=== PATIENT | male | born 2000 | race Caucasian/White ===

== ENCOUNTER 2024-09-23 07:29 | Emergency (ER) | payer BC, SELFPAY ==
[2024-09-23 07:36] VITALS: BP 167/83; PULSE 114; RESP 18; TEMP 36.8; O2SAT 95
[2024-09-23 07:37] VITALS: BMI 24.3
--- NOTE | 2024-09-23 07:45 | XR_ITS ---
Examination: Abdomen AP single view Technique: AP portable supine abdomen, single view Exam date and time: September 23, 2024 0755 hours INDICATIONS: Abdominal pain constipation beginning 5 days ago FINDINGS: Mild air and stool throughout the colon No obstruction No free air IMPRESSION: Mild air and stool throughout the colon
[2024-09-23] MEDS: MAGNESIUM CITRATE 300 ML BTL PO (08:16)
--- NOTE | 2024-09-23 09:07 | EDNOTE_ITS ---
<Statement entered by Za Sharp MD - 09/26/24 09:18> As co-signing physician, I was present and available for consult prn. I concur with the plan and care as documented by the midlevel provider. ED Ped. GI Abdomen RME/HPI General Chief Complaint: Abdominal Pain Stated Complaint: CONSTIPATED X 4-5 DAYS; USED SUPPOSITORY Time Seen by Provider: 09/23/24 07:34 Arrival date/time: 09/23/24 07:29 23-year-old male presents emergency department with complaints of constipation ongoing for 4 to 5 days there are no other associated symptoms or aggravating factors no other modifying factors, patient denies taking medication before coming to ER today Limitations: no limitations Related Data Previous Rx's ?Medication ?Instructions ?Recorded polyethylene glycol 3350 17 17 g PO QDAY 3 days #119 grams 09/23/24 gram/dose oral powder (Miralax) Allergies Allergy/AdvReac Type Severity Reaction Status Date / Time No Known Allergies Allergy Verified 09/23/24 07:31 Pediatric Review of Systems Systems Reviewed Systems Reviewed: All systems reviewed, normal except as documented Review of Systems Constitutional: Reports as per HPI; Denies fever Eyes: Reports as per HPI ENT: Reports as per HPI Cardiovascular: Reports as per HPI Respiratory: Reports as per HPI; Denies cough, dyspnea or wheezing Gastrointestinal: Reports as per HPI, abdominal pain and constipation; Denies nausea, vomiting or diarrhea Past Medical History Past Medical History NEUROLOGIC: Negative Neurological Disorders CARDIAC: Negative Cardiac Disorders or Congestive Heart Failure RESPIRATORY: Negative Chronic Obstructive Pulmonary Disease (COPD) GENITOURINARY: Negative Renal Disease ENDOCRINE: Negative Diabetes Mellitus Type 1 or Diabetes Mellitus Type 2 Social History SMOKING STATUS: Never smoker Ped Exam General Limitations: no limitations General appearance: well-appearing, well-hydrated and well-nourished Head Head exam: normocephalic, atruamatic and normal inspection Eye Eye exam: Present normal appearance, PERRL and EOMI ENT ENT exam: normal exam, normal oropharynx and mucous membranes moist Neck Neck exam: Present normal inspection, full ROM and trachea midline Chest Chest inspection: Present normal inspection and symmetric chest wall rise Respiratory Respiratory exam: Present normal lung sounds bilaterally Cardiovascular Cardiovascular exam: Present regular rate, normal rhythm and normal heart sounds Abdominal Exam Abdominal exam: Present soft and normal bowel sounds; Absent distention, tenderness, guarding, rebound, rigidity, [place]'s sign or tenderness at McBurney's Point Abdominal tenderness: Absent RUQ or RLQ Extremities Exam Extremities exam: Present normal inspection, full ROM and normal capillary refill Back Exam Back exam: Present normal inspection and full ROM Neurological Exam Neurological exam: Present alert, oriented X3 and CN II-XII intact Skin Skin exam: Present warm, dry, intact and normal color Course Quality Measures none Orders Category Date Time Status XR abdomen 1V Stat Exams 09/23/24 07:45 Completed Magnesium Citrate Liqd [Citrate of Magnesia Liqd] Med 09/23/24 07:45 Discontinued 300 ml PO X1 ONE Vital Signs Vital signs: Vital Signs Temperature 98.2 F 09/23/24 07:36 Pulse Rate 114 H 09/23/24 07:36 Respiratory Rate 18 09/23/24 07:36 Blood Pressure 167/83 H 09/23/24 07:36 Pulse Oximetry (%) 95 09/23/24 07:36 Oxygen Delivery Method Room Air 09/23/24 07:36 O2 saturation 95% room air within normal limit Medical Decision Making [facility] Narrative MDM Narrative: 23-year-old male presents emergency department with complaints of constipation ongoing for 4 to 5 days there are no other associated symptoms or aggravating factors no other modifying factors, patient denies taking medication before coming to ER today Patient reports that he was reading on the Internet about constipation and he is nervous patient requesting imaging Patient has soft nontender abdomen no distention reports no vomiting Patient medicated here and discharged home with meds X-ray of the abdomen does not show acute of bowel obstruction Patient discharged home in no distress to follow-up with primary care doctor in the next 24 to 48 hours and for any worsening symptoms to return to the ER immediately Differential Diagnosis Differential Diagnosis: Abdominal pain, constipation, obstipation Medical Records Medical records reviewed: Yes I reviewed the patient's medical records. Radiology Data Radiology results reviewed: Yes I reviewed the patient's radiology results. MDM (ped GI) Patient data External records reviewed:: [facility] previous records Clinical information provided by:: patient Social determinants that could affect healthcare access:: none Patient has the following chronic illnesses:: None How is presenting disease/condition affected by chronic disease/condition?: no chronic disease Evaluation data The following diagnostics were reviewed and interpreted by me:: lab results and radiology exam(s) Lab and/or radiology exams considered but not ordered:: Labs radiology obtained Interpretation Summary: Reviewed by me Medications Medications considered but not ordered:: Given Medication administrations:: Medication Administration History Discontinued Medications Magnesium Citrate (Magnesium Citrate 300 Ml Btl) 300 ml PO X1 ONE Stop: 09/23/24 07:46 Last Admin: 09/23/24 08:16 Dose: 300 ml Documented By: RD Given Consultations Consultation(s) initiated? (list below): No Diagnosis Most likely diagnosis given after review of the tests above:: Constipation Admission Indicated Admission indicated?: not indicated Explain why admission is indicated or not indicated:: Constipation no criteria for admission Admission Request Was there a request for admission?: No Disposition Plan Disposition Plan: Discharge Discharge Attestation Discharge Attestation: The patient and all family members were given an opportunity to ask questions and understood the discharge instructions. Discharge instructions specifically effects, indications for sooner follow up or return to the emergency department, and the expected course of current diagnosis. Patient condition: Stable Discharge Plan Plan Patient Disposition: HOME (Self Care) Disposition Comment: Stable Prescriptions/Referrals Prescriptions/Med Rec: New polyethylene glycol 3350 [Miralax] 17 gram/dose powder 17 g PO QDAY 3 Days Qty: 119 0RF Referrals: Elliott Vera MD [Primary Care Provider] - 09/24/24 Problem List Clinical Impression: Constipation Patient/Caregiver Discharge Instructions Education Materials: ED Constipation (Adult) Additional Instructions: Please follow up with your primary care doctor in the next 24-48hrs for any worsening symptoms return here immediately Print Language: Wolof Stand Alone Forms: Kimberly Award Info., Work/School Release, Patient Portal Info Letter BEBETO/MERRILL Supervising Physician BEBETO/MERRILL Supervising Physician: dr sharp
== END 2024-09-23 09:18 | disposition home or self-care (01) ==
PROVIDERS: Emergency Provider Emergency Medicine; PCP Internal Medicine
DX: K59.00 Constipation, unspecified (principal)
CPT/HCPCS: 74018; 99283; A9270

== ENCOUNTER → 2024-10-27 | Outpatient (CLI) | payer BC, SELFPAY ==
[2024-10-27 12:15] LABS: Collection Type, Urine Clean Catch; Squamous Epithelial Cell,Urine 0 /hpf (0-5)
[2024-10-27 12:47] LABS: Glucose Estimated Average 97 mg/dL (80-131)
[2024-10-27 13:01] LABS: Bacteria,Urine Rare; Bilirubin,Urine Negative (Negative); Blood,Urine Negative (Negative); Clarity,Urine Clear (Clear/Hazy); Color,Urine Yellow (Lt Yel-Yel); Glucose, Urine Negative (Negative); Ketones,Urine 2+ (Negative); Leukocyte Esterase,Urine Negative (Negative); Nitrite,Urine Negative (Negative); PH,Urine 7.5 (5.0-7.0); Protein,Urine Trace (Neg - Trace); RBC,Urine 2 /hpf (0-3); Specific Gravity,Urine 1.025 (1.001-1.035); Urobilinogen,Urine Negative mg/dL (0.0-1.0); WBC,Urine 1 /hpf (0-5)
[2024-10-27 13:02] LABS: Alanine Aminotransferase 16 U/L (10-49); Albumin, Serum 5.3 gm/dL (3.5-5.0); Albumin/Globulin Ratio 2.1 (1.2-2.2); Alkaline Phosphatase 54 U/L (46-116); Anion Gap 12 (7-16); Aspartate Amino Transferase 17 U/L (0-34); BUN/Creatinine Ratio 11 Ratio (12-20); Blood Urea Nitrogen 10 mg/dL (9-23); Calcium 10.5 mg/dL (8.3-10.6); Calcium (Corrected) 10.5 mg/dL (8.5-10.1); Carbon Dioxide 26.4 mMol/L (20.0-31.0); Chloride 100 mMol/L (98-107); Cholesterol 176 mg/dL (132-200); Creatinine (Component) 0.9 mg/dL (0.6-1.3); Free T4 (Free Thyroxine) 1.31 ng/dL (0.89-1.76); Globulin 2.5 gm/dL (2.3-3.5); Glucose 96 mg/dL (74-106); HDL Cholesterol 58 mg/dL (40-60); LDL Cholesterol,Calculated 104 mg/dL (0-130); Osmolality,Calculated 274 (275-295); Potassium 4.2 mMol/L (3.4-5.1); Sodium 138 mMol/L (136-145); Thyroid Stimulating Hormone 1.55 uIU/mL (0.55-4.78); Total Protein 7.8 gm/dL (5.7-8.2); Triglycerides 69 mg/dL (30-150); eGFR > 60 See Note
[2024-10-27 13:08] LABS: Basophils % (Auto) 0 % (0-2.5); Eosinophils % (Auto) 0 % (0-10); Hematocrit 49.7 % (41.0-53.0); Hemoglobin 17.5 g/dL (13.5-16.0); Immature Granulocytes % (Auto) 0 % (0-0); Immature Granulocytes Auto 0.03 Thou/mm3 (0.00-0.00); Lymphocytes % (Auto) 21 % (10-50); Mean Corpuscular HGB Conc 35.2 g/dl (31.0-37.0); Mean Corpuscular Hemoglobin 28.9 pg (25.0-35.0); Mean Corpuscular Volume 82 fL (80-100); Monocytes # (Auto) 0.7 Thou/mm3 (0.0-0.8); Monocytes % (Auto) 7 % (0-12); Neutrophils # (Auto) 6.7 Thou/mm3 (1.8-7.7); Neutrophils % (Auto) 71 % (37-80); Nucleated Red Blood Cell % 0 /100 WBC (0); Platelet Count 320 Thou/mm3 (140-440); RDW Standard Deviation 35.4 fL (35.1-43.9); Red Blood Count 6.05 Miln/mm3 (4.50-5.90); White Blood Count 9.5 Thou/mm3 (3.8-10.6)
== END | disposition home or self-care (01) ==
LOC: COPL 11:55
PROVIDERS: PCP Internal Medicine; Referring Provider Internal Medicine; Visit Provider Internal Medicine
DX: Z00.00 Encounter for general adult medical examination without abnormal findings (principal)
CPT/HCPCS: 36415; 80053; 80061; 81001; 82306; 83036; 84439; 84443; 85025

== ENCOUNTER → 2024-11-13 | Outpatient (CLI) | payer BC, SELFPAY ==
--- NOTE | 2024-11-13 | XR_ITS ---
Examination: Retroperitoneal ultrasound, complete Technique: Multiple high resolution grayscale images of the retroperitoneum obtained, including kidneys and bladder. Exam date and time:November 13, 2024 1223 hours INDICATIONS: Abdominal pain and constipation beginning 5 days ago FINDINGS: Right kidney 11.7 x 5.5 x 5.2 cm cortex 1.3 cm Minimal right hydronephrosis Left kidney 12.4 x 7.0 x 6.1 cm cortex 2.5 cm Upper pole hyperechoic lesion 10 mm which may represent calculus Bladder prevoid volume 136 cc no voiding Prostate 13.1 C see no prostate nodules IMPRESSION: Suspicious for 10 mm upper pole left renal calculus
--- NOTE | 2024-11-13 11:30 | XR_ITS ---
Examination: Abdomen sonogram, complete Date and time of exam: November 23, 2024 at 1209 hours INDICATIONS: Constipation beginning 5 days ago TECHNIQUE: Real-time dickens scale sonographic images abdomen FINDINGS: Normal gallbladder Normal common bile duct 0.3 cm Pancreatic head 2.2 cm Aorta not enlarged Liver 14.3 cm no focal liver lesions Normal hepatopedal portal venous flow Patent IVC Right kidney 11.3 x 4.7 x 5.6 cm renal cortex 1.7 cm Left kidney 12.6 cm x 6.4 x 6.7 cm renal cortex 2.6 cm Hyperechoic upper pole left renal mass 14 x 12 x 11 mm Spleen 10.8 cm. 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
--- NOTE | 2024-11-13 12:43 | XR_ITS ---
Examination: PA lateral chest 2 views TECHNIQUE: Upright AP lateral chest 2 views Exam date and time: November 13, 2024 1253 hours INDICATIONS: Diagnosis hypertension. FINDINGS: Normal heart size Lungs are clear. The osseous structures are intact Old right clavicle fracture IMPRESSION: No active disease
== END | disposition home or self-care (01) ==
LOC: CDIM 11:54
PROVIDERS: PCP Internal Medicine; Referring Provider Internal Medicine; Visit Provider Internal Medicine
DX: N28.89 Other specified disorders of kidney and ureter (principal); N20.0 Calculus of kidney
CPT/HCPCS: 71046; 76700; 76770

== ENCOUNTER → 2024-12-10 | Outpatient (CLI) | payer BC, SELFPAY ==
--- NOTE | 2024-12-10 13:30 | XR_ITS ---
Examination: CT abdomen with intravenous contrast CT pelvis with intravenous contrast 2-D coronal reconstructions 2-D sagittal reconstructions Date and time of exam:December 10, 2024 1401 hours INDICATIONS: Diagnosis neoplasm left kidney, left kidney stones, 10 mm upper pole left renal calculus on renal sonogram November 13, 2024. CTDI: vol (mGy) 6.83 DLP: (mGycm) 389 Technique: Multiple axial sections of the abdomen and pelvis have been obtained. 64 slice high-resolution scanner used. 3 mm axial sections have been obtained, post intravenous injection 50 cc [id number] 2-D sagittal, coronal reconstructions obtained. Low dose protocols were performed. One or more of the following dose reduction techniques were used; automated exposure control, adjustment of the mA and/or KV according to patient size, use of iterative reconstruction technique. Findings: No focal liver or splenic lesions No gallstones No pancreatic or adrenal mass No renal or ureteral calculi, no hydronephrosis Aorta normal size No bowel obstruction Normal appendix No diverticulitis Normal seminal vesicles No prostatomegaly No bladder mass or bladder calculi IMPRESSION: No renal or ureteral calculi, no hydronephrosis Normal appendix No bladder mass or bladder calculi
== END | disposition home or self-care (01) ==
LOC: CCTX 13:14
PROVIDERS: PCP Internal Medicine; Referring Provider Internal Medicine; Visit Provider Internal Medicine
DX: D41.02 Neoplasm of uncertain behavior of left kidney (principal)
CPT/HCPCS: 74177; A4649; Q9967

== ENCOUNTER → 2025-04-09 | Outpatient (CLI) | payer BC, SELFPAY ==
--- NOTE | 2025-04-09 09:15 | XR_ITS ---
Examination: Renal sonography,. Renal Doppler sonographic evaluation of the kidneys Date and time: April 09, 2025 0904 hours Comparison November 13, 2024 INDICATIONS: Onset hypertension 6 months ago TECHNIQUE AND FINDINGS: Multiple sonographic images kidneys Sonographic evaluation of the kidneys including assessment peak arterial systolic flow is, resistive indices 6 separation times and renal aortic ratios Right kidney 11.8 cm Left kidney 12.1 cm No bilateral elevation of peak systolic velocities No significant elevation resistive indices Normal renal aortic ratios IMPRESSION: No Doppler sonographic findings of renal artery stenosis
== END | disposition home or self-care (01) ==
LOC: CDIM 08:48
PROVIDERS: PCP Internal Medicine; Referring Provider Internal Medicine Cardiovascular Disease; Visit Provider Internal Medicine Cardiovascular Disease
DX: I10 Essential (primary) hypertension (principal)
CPT/HCPCS: 93975

== ENCOUNTER → 2025-04-15 | Outpatient (CLI) | payer BC, SELFPAY ==
[2025-04-15 15:13] LABS: Misc Send Out* See Sep Rpt
[2025-04-15 15:26] LABS: Collection Type, Urine Clean Catch; Squamous Epithelial Cell,Urine 0 /hpf (0-5)
[2025-04-15 16:16] LABS: Bacteria,Urine Rare; Bilirubin,Urine Negative (Negative); Blood,Urine Negative (Negative); Clarity,Urine Clear (Clear/Hazy); Color,Urine Yellow (Lt Yel-Yel); Glucose, Urine Negative (Negative); Ketones,Urine 3+ (Negative); Leukocyte Esterase,Urine Negative (Negative); Nitrite,Urine Negative (Negative); PH,Urine 6.5 (5.0-7.0); Protein,Urine Trace (Neg - Trace); RBC,Urine 3 /hpf (0-3); Specific Gravity,Urine 1.030 (1.001-1.035); Urobilinogen,Urine Negative mg/dL (0.0-1.0); WBC,Urine 1 /hpf (0-5)
[2025-04-15 16:19] LABS: Alanine Aminotransferase 12 U/L (10-49); Albumin, Serum 5.0 gm/dL (3.5-5.0); Albumin/Globulin Ratio 2.2 (1.2-2.2); Alkaline Phosphatase 44 U/L (46-116); Anion Gap 12 (7-16); Aspartate Amino Transferase 16 U/L (0-34); BUN/Creatinine Ratio 7 Ratio (12-20); Bilirubin,Total 0.7 mg/dL (0.3-1.2); Blood Urea Nitrogen 6 mg/dL (9-23); Calcium 9.8 mg/dL (8.3-10.6); Calcium (Corrected) 9.8 mg/dL (8.5-10.1); Carbon Dioxide 25.2 mMol/L (20.0-31.0); Chloride 103 mMol/L (98-107); Creatinine (Component) 0.9 mg/dL (0.6-1.3); Free T4 (Free Thyroxine) 1.44 ng/dL (0.89-1.76); Globulin 2.3 gm/dL (2.3-3.5); Glucose 100 mg/dL (74-106); Osmolality,Calculated 277 (275-295); Potassium 3.2 mMol/L (3.4-5.1); Sodium 140 mMol/L (136-145); Thyroid Stimulating Hormone 1.38 uIU/mL (0.55-4.78); Total Protein 7.3 gm/dL (5.7-8.2); eGFR > 60 See Note
[2025-04-19 14:46] LABS: Aldosterone* 1 ng/dL
[2025-04-21 06:19] LABS: Renin Activity, Plasma* 0.76 ng/mL/h (0.25-5.82)
== END | disposition home or self-care (01) ==
LOC: COPL 14:10
PROVIDERS: PCP Internal Medicine; Referring Provider Internal Medicine Cardiovascular Disease; Visit Provider Internal Medicine Cardiovascular Disease
DX: I10 Essential (primary) hypertension (principal)
CPT/HCPCS: 36415; 80053; 81001; 82088; 83835; 84244; 84439; 84443

== ENCOUNTER → 2025-04-21 | Outpatient (CLI) | payer BC, SELFPAY ==
[2025-04-21 14:50] LABS: Misc Send Out* See Sep Rpt
== END | disposition home or self-care (01) ==
LOC: SLDO 14:42
PROVIDERS: Referring Provider Internal Medicine Cardiovascular Disease; Visit Provider Internal Medicine Cardiovascular Disease
DX: I10 Essential (primary) hypertension (principal)
CPT/HCPCS: 83835